=== PATIENT | female | born 1970 | race Caucasian/White ===

== ENCOUNTER → 2020-02-27 12:51 | Outpatient (BNVA) | payer BC, SELFPAY | PROVIDERS: Family Provider Nurse Practitioner Family; PCP Nurse Practitioner Family; Visit Provider Specialist | DX: G47.33 Obstructive sleep apnea (adult) (pediatric) (principal); G40.B09 Juvenile myoclonic epilepsy, not intractable, without status epilepticus; I87.2 Venous insufficiency (chronic) (peripheral); E13.9 Other specified diabetes mellitus without complications; E07.9 Disorder of thyroid, unspecified; Z79.84 Long term (current) use of oral hypoglycemic drugs | CPT/HCPCS: 99214 ==

== ENCOUNTER 2020-02-27 14:48 | Outpatient (CLI) | payer BC, SELFPAY ==
[2020-02-27 15:15] LABS: Basophils % 0.4 %; Eosinophils # 0.2 10^3/uL (0.0-0.8); Eosinophils % 1.5 %; Hematocrit 43.6 % (37.0-47.0); Hemoglobin 14.1 g/dL (11.5-15.3); Lymphocytes # 5.3 10^3/uL (0.8-4.8); Lymphocytes % 46.8 %; Mean Corpuscular HGB Conc 32.3 g/dL (30.0-36.0); Mean Corpuscular Hemoglobin 28.8 pg (28.0-34.0); Mean Corpuscular Volume 89.2 fL (81-99); Monocytes # 0.9 10^3/uL (0.2-0.9); Monocytes % 7.9 %; Neutrophils # 4.9 10^3/uL (1.8-7.7); Neutrophils % 43.1 %; Nucleated Red Blood Cells % 0 %; Platelet Count 208 10^3/cmm (130-400); Red Blood Count 4.89 10^6/uL (4.1-5.3); Red Cell Distribution Width 12.2 % (12.1-15.1); White Blood Count 11.4 10^3/uL (4.0-10.0)
[2020-02-27 15:44] LABS: Alanine Aminotransferase 19 U/L (0-33); Albumin Level 3.7 g/dL (3.5-5.2); Alkaline Phosphatase 90 IU/L (35-105); Anion Gap 16.9 (5-19); Aspartate Amino Transferase 37 U/L (0-32); Blood Urea Nitrogen 9 mg/dL (6-20); Calcium 9.3 mg/dL (8.5-10.5); Carbon Dioxide 28 mmol/L (22-29); Chloride 100 mmol/L (98-107); Globulin 4.2 g/dL (1.3-4.6); Glomerular Filtration Rate 130.1 mL/min (90-130); Glucose 121 mg/dL (65-115); Osmolality Calculated 289 mOsm/kg (285-295); Potassium 3.9 mmol/L (3.5-5.1); Slide Review Slide Review Perform; Sodium 141 mmol/L (136-145); Total Bilirubin 0.4 mg/dL (0.15-1.2); Total Protein 7.9 g/dL (6.6-8.7)
[2020-02-27 16:05] LABS: Estmated Average Glucose 174; Hemoglobin A1C 7.7 % (4.0-6.0)
== END 2020-02-27 14:49 | disposition home or self-care (01) ==
LOC: LAB 14:50
PROVIDERS: Family Provider Nurse Practitioner Family; PCP Nurse Practitioner Family; Visit Provider Specialist
DX: G47.33 Obstructive sleep apnea (adult) (pediatric) (principal)
CPT/HCPCS: 36415; 80053; 83036; 84443; 85025

== ENCOUNTER → 2021-02-24 12:40 | Outpatient (BNVA) | payer BC, SELFPAY | PROVIDERS: Family Provider Nurse Practitioner Family; PCP Nurse Practitioner Family; Visit Provider Specialist | DX: G40.B09 Juvenile myoclonic epilepsy, not intractable, without status epilepticus (principal); G47.33 Obstructive sleep apnea (adult) (pediatric); E11.9 Type 2 diabetes mellitus without complications; I87.2 Venous insufficiency (chronic) (peripheral); Z87.891 Personal history of nicotine dependence | CPT/HCPCS: 99213; 99214 ==

== ENCOUNTER 2021-02-24 14:19 | Outpatient (CLI) | payer SELFPAY ==
[2021-02-24 15:26] LABS: Basophils % 0.4 %; Eosinophils # 0.1 10^3/uL (0.0-0.8); Eosinophils % 0.9 %; Hematocrit 39.8 % (37.0-47.0); Hemoglobin 12.9 g/dL (11.5-15.3); Lymphocytes # 5.2 10^3/uL (0.8-4.8); Lymphocytes % 46.9 %; Mean Corpuscular HGB Conc 32.4 g/dL (30.0-36.0); Mean Corpuscular Hemoglobin 29.2 pg (28.0-34.0); Mean Platelet Volume 11.2 fL (7.4-10.4); Monocytes # 0.9 10^3/uL (0.2-0.9); Monocytes % 8.4 %; Neutrophils # 4.78 10^3/uL (1.8-7.7); Neutrophils % 42.9 %; Nucleated Red Blood Cells % 0 %; Platelet Count 173 10^3/cmm (130-400); Red Blood Count 4.42 10^6/uL (4.1-5.3); Red Cell Distribution Width 12.9 % (12.1-15.1); White Blood Count 11.1 10^3/uL (4.0-10.0)
[2021-02-24 16:03] LABS: Alanine Aminotransferase 31 U/L (0-33); Albumin Level 3.4 g/dL (3.5-5.2); Alkaline Phosphatase 85 IU/L (35-105); Anion Gap 13.9 (5-19); Aspartate Amino Transferase 47 U/L (0-32); Blood Urea Nitrogen 12 mg/dL (6-20); Calcium 8.2 mg/dL (8.5-10.5); Carbon Dioxide 28 mmol/L (22-29); Chloride 104 mmol/L (98-107); Globulin 3.1 g/dL (1.3-4.6); Glomerular Filtration Rate 167.6 mL/min (90-130); Glucose 131 mg/dL (65-115); Osmolality Calculated 296 mOsm/kg (285-295); Potassium 3.9 mmol/L (3.5-5.1); Sodium 142 mmol/L (136-145); Thyroid Stimulating Hormone 3.36 uIU/mL (0.27-4.20); Total Bilirubin 0.4 mg/dL (0.15-1.2); Total Protein 6.5 g/dL (6.6-8.7)
[2021-02-24 16:44] LABS: Estmated Average Glucose 226; Hemoglobin A1C 9.5 % (4.0-6.0)
== END 2021-02-24 14:20 | disposition home or self-care (01) ==
LOC: LAB 14:29
PROVIDERS: Family Provider Nurse Practitioner Family; PCP Nurse Practitioner Family; Visit Provider Specialist
DX: Z00.00 Encounter for general adult medical examination without abnormal findings (principal)
CPT/HCPCS: 36415; 80053; 83036; 84443; 85025

== ENCOUNTER → 2021-06-03 13:39 | Outpatient (BNVA) | payer SELFPAY | PROVIDERS: Family Provider Nurse Practitioner Family; PCP Nurse Practitioner Family; Visit Provider Internal Medicine | DX: E11.9 Type 2 diabetes mellitus without complications (principal) | CPT/HCPCS: 83036 ==

== ENCOUNTER → 2021-12-04 15:45 | Outpatient (BNVA) | payer SELFPAY | PROVIDERS: Family Provider Nurse Practitioner Family; PCP Nurse Practitioner Family; Visit Provider Internal Medicine | DX: E11.9 Type 2 diabetes mellitus without complications (principal); G40.B09 Juvenile myoclonic epilepsy, not intractable, without status epilepticus; I87.2 Venous insufficiency (chronic) (peripheral) | CPT/HCPCS: 83036; 84443 ==

== ENCOUNTER → 2023-03-30 08:48 | Outpatient (BNVA) | payer SELFPAY | PROVIDERS: Family Provider Nurse Practitioner Family; Visit Provider Specialist | DX: E11.9 Type 2 diabetes mellitus without complications (principal); G40.B09 Juvenile myoclonic epilepsy, not intractable, without status epilepticus; I87.2 Venous insufficiency (chronic) (peripheral) | CPT/HCPCS: 36415; 83036; 84450; 84460 ==

== ENCOUNTER → 2023-10-05 09:41 | Outpatient (BNVA) | payer BC, SELFPAY | PROVIDERS: Family Provider Nurse Practitioner Family; Visit Provider Specialist | DX: G40.909 Epilepsy, unspecified, not intractable, without status epilepticus (principal); E07.9 Disorder of thyroid, unspecified; E11.9 Type 2 diabetes mellitus without complications; G40.B09 Juvenile myoclonic epilepsy, not intractable, without status epilepticus | CPT/HCPCS: 36415; 83036; 85025 ==

== ENCOUNTER → 2024-09-13 10:02 | Outpatient (BNVA) | payer BC, SELFPAY | PROVIDERS: Family Provider Nurse Practitioner Family; Visit Provider Specialist | DX: E11.9 Type 2 diabetes mellitus without complications (principal); G40.B09 Juvenile myoclonic epilepsy, not intractable, without status epilepticus | CPT/HCPCS: 36415; 80053; 83036; 84443; 85025 ==

== ENCOUNTER → 2025-09-18 09:52 | Outpatient (BNVA) | payer BC, SELFPAY | PROVIDERS: Family Provider Nurse Practitioner Family; Visit Provider Specialist | DX: E03.9 Hypothyroidism, unspecified (principal); E11.9 Type 2 diabetes mellitus without complications | CPT/HCPCS: 36415; 83036; 84443 ==